=== PATIENT | female | born 2000 | race Caucasian/White ===

== ENCOUNTER 2021-05-30 12:46 | Outpatient (REF) | payer OTHER, SELFPAY | END 2021-05-30 12:47 | disposition home or self-care (01) | LOC: HO.LAB 12:46 | PROVIDERS: Visit Provider Internal Medicine | DX: Z20.822 Contact with and (suspected) exposure to COVID-19 (principal) | CPT/HCPCS: C9803; U0003; U0005 ==

== ENCOUNTER 2021-06-06 14:10 | Outpatient (REF) | payer OTHER, SELFPAY ==
[2021-06-06 14:33] LABS: COVID-19 Test Negative (Negative)
== END 2021-06-06 14:11 | disposition home or self-care (01) ==
LOC: HO.LAB 14:10
PROVIDERS: Visit Provider Internal Medicine
DX: Z20.822 Contact with and (suspected) exposure to COVID-19 (principal)
CPT/HCPCS: 36415; 87635; C9803

== ENCOUNTER 2021-09-18 13:52 | Outpatient (REF) | payer OTHER, SELFPAY ==
[2021-09-18 15:15] LABS: COVID-19 Test Positive (Negative)
== END 2021-09-18 13:53 | disposition home or self-care (01) ==
LOC: HO.LAB 13:52
PROVIDERS: Visit Provider Internal Medicine
DX: Z20.822 Contact with and (suspected) exposure to COVID-19 (principal)
CPT/HCPCS: 36415; 87635; C9803

== ENCOUNTER 2022-11-27 11:20 | Emergency (ER) | payer OTHER, SELFPAY ==
[2022-11-27 11:57] VITALS: BP 109/74; PULSE 105; RESP 18; TEMP 36.8; O2SAT 99; BMI 20.1
--- NOTE | 2022-11-27 11:57 | ED_ITS ---
HPI - Nausea/Vomiting/Diarrhea General Chief complaint: Abdominal Pain <VERA Garcia Last Filed: 11/27/22 12:00> Stated complaint: diarrhea, not eating, nauseous, dizzy <VERA Garcia - Last Filed: 11/27/22 12:00> Time Seen by Provider: 11/27/22 18:43 <VERA Garcia - Last Filed: 11/27/22 12:00> Source: patient <Carlos Hoffman MD - Last Filed: 11/28/22 00:49> Mode of arrival: ambulatory <Carlos Hoffman MD - Last Filed: 11/28/22 00:49> Limitations: no limitations <Carlos Hoffman MD - Last Filed: 11/28/22 00:49> History of Present Illness HPI Narrative: Patient ate [employer]aco 4 days ago since then having diarrhea multiple times unable to sleep even with nausea unable to eat anything feels weak and tired had chills no urinary symptoms no significant abdominal pain no fever blood in the stool is just watery stool <Carlos Hoffman MD - Last Filed: 11/28/22 00:49> Related Data Home medications: Previous Rx's Medication Instructions Recorded levofloxacin 500 mg tablet 500 mg PO DAILY 3 days #3 tabs 11/27/22 loperamide 2 mg tablet (Imodium 2 mg PO Q6H PRN loose stool #20 11/27/22 A-D) tabs ondansetron 4 mg disintegrating 4 mg PO Q6-8H PRN nausea and 11/27/22 tablet vomiting #10 tabs <VERA Garcia Last Filed: 11/27/22 12:00> Allergies/Adverse reactions: Allergies Allergy/AdvReac Type Severity Reaction Status Date / Time No Known Allergies Allergy Unverified 06/06/20 17:58 POLLEN Allergy Unknown Uncoded 03/06/19 00:00 <VERA Garcia Last Filed: 11/27/22 12:00> Review of Systems Review of Systems: Constitutional : No Weight loss, No Fever, No Chills ENT/Mouth : No sore throat, No Rhinorrhea Eyes: No Eye Pain, No Swelling Cardiovascular : No Chest Pain, no palpitations Respiratory : No Cough, No Sputum, no shortness of breath Gastrointestinal : +++ Nausea, No Vomiting, +++Diarrhea, No abdominal Pain, no black stools Genitourinary : No Dysuria, No Urinary Frequency Musculoskeletal : No joint pain, No Myalgias, No Joint Swelling Skin : No Skin Lesions, No rash Neuro : +++ Weakness, No Numbness, No Dizziness, No Headache Psych : No Anxiety/Panic, No Depression Heme/Lymph: No Bruising, No Lymphadenopathy Endocrine : No Polyuria, No Polydipsia All other systems reviewed and are negative <Carlos Hoffman MD - Last Filed: 11/28/22 00:49> Yes all other systems are reviewed and are negative <Carlos Hoffman MD - Last Filed: 11/28/22 00:49> [facility] Social History Social History: Social History Advance Directives: No Advance Directives Information Provided: No <VERA Garcia - Last Filed: 11/27/22 12:00> Physical Exam Vital Signs: Vital Signs: Last Vital Signs Temp 97.6 F 11/27/22 20:43 Pulse 93 11/27/22 20:43 Resp 16 11/27/22 20:43 BP 110/53 L 11/27/22 20:43 Pulse Ox 99 11/27/22 20:43 O2 Del Method 11/27/22 20:43 BMI result Body Mass Index 20.1 <VERA Garcia - Last Filed: 11/27/22 12:00> Vital Signs: Last Vital Signs Temp 97.6 F 11/27/22 20:43 Pulse 93 11/27/22 20:43 Resp 16 11/27/22 20:43 BP 110/53 L 11/27/22 20:43 Pulse Ox 99 11/27/22 20:43 O2 Del Method 11/27/22 20:43 BMI result Body Mass Index 20.1 <Carlos Hoffman MD - Last Filed: 11/28/22 00:49> Appearance: Alert. Oriented X3. No acute distress. Eyes: PERRLA, No Nystagmus ENT: Pharynx normal. Oral Mucosa dry Neck: Normal inspection. Neck supple. CVS: Normal heart rate and rhythm. Pulses normal. Respiratory: No respiratory distress. Equal air entry bilateral, no wheezing/rales/rhonchi Abdomen: Soft and nontender. Bowel sounds are present, no mass palpable, no CVA tenderness Skin: Skin warm and dry. Normal skin color. Normal skin turgor. Extremities: No lower extremity edema. No calf tenderness Neuro: Oriented X 3. No motor deficit. No sensory deficit.No cerebellar signs , cranial nerves II-XII intact <Carlos Hoffman MD - Last Filed: 11/28/22 00:49> Course Course Course Narrative: RME - 22 yo female presenting to the ER with complaints of diarrhea x 3 days. States that this started after eating cow tongue and steak tacos from a food truck in [place]. She states that she has been unable to eat or drink anything as it immediately causes her to have diarrhea. Denies any recent antibiotic use. States that she has feel dizzy and has had palpitations intermittently. She has had burning abdominal pain. Denies any bloody stool. Plan - Labs ordered. <VERA Garcia - Last Filed: 11/27/22 12:00> Medications Administered Discontinued Medications Generic Name Dose Route Start Last Admin Trade Name Freq PRN Reason Stop Dose Admin Sodium Chloride 1,000 mls @ 999 mls/hr 11/27/22 19:06 11/27/22 20:24 Ns IV 11/27/22 20:06 Infused .Q1H1M ONE Infusion Levofloxacin 500 mg 11/27/22 18:44 11/27/22 19:07 Levofloxacin 500 Mg Tablet PO 11/27/22 18:45 500 mg ONCE ONE Administration Loperamide HCl 4 mg 11/27/22 18:44 11/27/22 19:06 Loperamide Hcl 2 Mg Capsule PO 11/27/22 18:45 4 mg ONCE ONE Administration Ondansetron HCl 4 mg 11/27/22 19:06 11/27/22 19:22 Ondansetron Hcl 4 Mg/2 Ml Vial IVPUSH 11/27/22 19:07 4 mg ONCE ONE Administration <VERA Garcia - Last Filed: 11/27/22 12:00> Medications Administered Discontinued Medications Generic Name Dose Route Start Last Admin Trade Name Freq PRN Reason Stop Dose Admin Sodium Chloride 1,000 mls @ 999 mls/hr 11/27/22 19:06 11/27/22 20:24 Ns IV 11/27/22 20:06 Infused .Q1H1M ONE Infusion Levofloxacin 500 mg 11/27/22 18:44 11/27/22 19:07 Levofloxacin 500 Mg Tablet PO 11/27/22 18:45 500 mg ONCE ONE Administration Loperamide HCl 4 mg 11/27/22 18:44 11/27/22 19:06 Loperamide Hcl 2 Mg Capsule PO 11/27/22 18:45 4 mg ONCE ONE Administration Ondansetron HCl 4 mg 11/27/22 19:06 11/27/22 19:22 Ondansetron Hcl 4 Mg/2 Ml Vial IVPUSH 11/27/22 19:07 4 mg ONCE ONE Administration <Carlos Hoffman MD - Last Filed: 11/28/22 00:49> Medical Decision Making Medical Decision Making MDM Narrative: Patient with acute enteritis after eating food likely E coli no blood in the stool patient feeling much better after Imodium labs are stable will give Levaquin as patient has UTI also <Carlos Hoffman MD - Last Filed: 11/28/22 00:49> Lab Data MDM Lab Attestation statement: I reviewed the patient's lab results. <Carlos Hoffman MD - Last Filed: 11/28/22 00:49> Result Diagrams: 11/27/22 12:03 11/27/22 12:03 <VERA Garcia - Last Filed: 11/27/22 12:00> Labs: Lab Results 11/27/22 11/27/22 11/27/22 Range/Units 12:03 12:03 16:35 WBC 6.4 (4.8-10.8) X10*3/uL RBC 5.05 (4.20-5.50) X10*6/uL Hgb 14.9 (12.0-16.0) g/dl Hct 44.7 (37.0-47.0) % MCV 88.5 (80.0-98.0) fL MCH 29.5 (27.0-33.0) pg MCHC 33.3 (31.0-35.0) g/dl RDW 12.8 (11.0-16.0) % Plt Count 187 (160-400) X10*3/uL MPV 10.6 (9.4-12.3) fL Immature Gran % (Auto) 0.3 (0.0-0.4) % Neut % (Auto) 66.1 (45-73) % Lymph % (Auto) 24.7 (20-40) % [place] % (Auto) 8.2 (2-11) % Eos % (Auto) 0.2 (0-4) % Baso % (Auto) 0.5 (0-2) % Lymph # (Auto) 1.6 (1.2-4.9) X10*3/uL [place] # (Auto) 0.5 (0.1-1.2) X10*3/uL Eos # (Auto) 0.0 (0.0-0.4) X10*3/uL Baso # (Auto) 0.0 (0.0-0.2) X10*3/uL Abs Immat Gran (auto) 0.02 (0.00-0.03) X10*3/uL Absolute Neuts (auto) 4.2 (2.0-8.3) x10*3/uL Absolute Nucleated RBC 0.000 (0.0-0.012) X10*3/uL Nucleated RBC % (auto) 0.0 (0.0-0.2) /100WBC Sodium 139 (135-145) mmol/L Potassium 3.5 (3.3-5.1) mmol/L Chloride 108 (96-108) mmol/L Carbon Dioxide 19 L (22-29) mmol/L Anion Gap 16 (12-20) BUN 16 (9-16) mg/dL Creatinine 0.72 (0.5-1.4) mg/dL Estim Creat Clear Calc 107.8 Estimated GFR > 60 Random Glucose 82 (60-115) mg/dL Calcium 8.2 L (8.4-10.2) mg/dL Magnesium 2.2 (1.6-2.6) mg/dL Total Bilirubin 0.6 (0.0-1.0) mg/dL Direct Bilirubin 0.2 (0.0-0.5) mg/dL AST 17 (5-31) U/L ALT 13 (0-31) U/L Alkaline Phosphatase 92 (39-117) U/L Total Protein 7.2 (6.5-8.0) g/dL Albumin 4.4 (3.5-5.0) g/dL Lipase 15 (8-78) U/L Urine Color Dark Yellow Urine Appearance Clear Urine pH 6.0 (5.0-9.0) Ur Specific [place] >= 1.030 H (1.005-1.025) Urine Protein Trace (Neg-Trace) mg/dL Urine Glucose (UA) Negative (Negative) mg/dL Urine Ketones 40 (Negative) mg/dL Urine Blood Negative (Negative) Urine Nitrite Negative (Negative) Ur Leukocyte Esterase Small (1+) H (Negative) Urine RBC 0-2 (0-2) /HPF Urine WBC 11-20 H (0-5) /HPF Ur Squamous Epith Cells 6-10 (0-2) /HPF Urine Bacteria 1+ (None Seen) Hyaline Casts 3-5 (0-2) /LPF Urine Test (NEGATIVE) 11/27/22 Range/Units 16:35 WBC (4.8-10.8) X10*3/uL RBC (4.20-5.50) X10*6/uL Hgb (12.0-16.0) g/dl Hct (37.0-47.0) % MCV (80.0-98.0) fL MCH (27.0-33.0) pg MCHC (31.0-35.0) g/dl RDW (11.0-16.0) % Plt Count (160-400) X10*3/uL MPV (9.4-12.3) fL Immature Gran % (Auto) (0.0-0.4) % Neut % (Auto) (45-73) % Lymph % (Auto) (20-40) % [place] % (Auto) (2-11) % Eos % (Auto) (0-4) % Baso % (Auto) (0-2) % Lymph # (Auto) (1.2-4.9) X10*3/uL [place] # (Auto) (0.1-1.2) X10*3/uL Eos # (Auto) (0.0-0.4) X10*3/uL Baso # (Auto) (0.0-0.2) X10*3/uL Abs Immat Gran (auto) (0.00-0.03) X10*3/uL Absolute Neuts (auto) (2.0-8.3) x10*3/uL Absolute Nucleated RBC (0.0-0.012) X10*3/uL Nucleated RBC % (auto) (0.0-0.2) /100WBC Sodium (135-145) mmol/L Potassium (3.3-5.1) mmol/L Chloride (96-108) mmol/L Carbon Dioxide (22-29) mmol/L Anion Gap (12-20) BUN (9-16) mg/dL Creatinine (0.5-1.4) mg/dL Estim Creat Clear Calc Estimated GFR Random Glucose (60-115) mg/dL Calcium (8.4-10.2) mg/dL Magnesium (1.6-2.6) mg/dL Total Bilirubin (0.0-1.0) mg/dL Direct Bilirubin (0.0-0.5) mg/dL AST (5-31) U/L ALT (0-31) U/L Alkaline Phosphatase (39-117) U/L Total Protein (6.5-8.0) g/dL Albumin (3.5-5.0) g/dL Lipase (8-78) U/L Urine Color Urine Appearance Urine pH (5.0-9.0) Ur Specific [place] (1.005-1.025) Urine Protein (Neg-Trace) mg/dL Urine Glucose (UA) (Negative) mg/dL Urine Ketones (Negative) mg/dL Urine Blood (Negative) Urine Nitrite (Negative) Ur Leukocyte Esterase (Negative) Urine RBC (0-2) /HPF Urine WBC (0-5) /HPF Ur Squamous Epith Cells (0-2) /HPF Urine Bacteria (None Seen) Hyaline Casts (0-2) /LPF Urine Test NEGATIVE (NEGATIVE) <VERA Garcia - Last Filed: 11/27/22 12:00> Lab Results 11/27/22 11/27/22 11/27/22 Range/Units 12:03 12:03 16:35 WBC 6.4 (4.8-10.8) X10*3/uL RBC 5.05 (4.20-5.50) X10*6/uL Hgb 14.9 (12.0-16.0) g/dl Hct 44.7 (37.0-47.0) % MCV 88.5 (80.0-98.0) fL MCH 29.5 (27.0-33.0) pg MCHC 33.3 (31.0-35.0) g/dl RDW 12.8 (11.0-16.0) % Plt Count 187 (160-400) X10*3/uL MPV 10.6 (9.4-12.3) fL Immature Gran % (Auto) 0.3 (0.0-0.4) % Neut % (Auto) 66.1 (45-73) % Lymph % (Auto) 24.7 (20-40) % [place] % (Auto) 8.2 (2-11) % Eos % (Auto) 0.2 (0-4) % Baso % (Auto) 0.5 (0-2) % Lymph # (Auto) 1.6 (1.2-4.9) X10*3/uL [place] # (Auto) 0.5 (0.1-1.2) X10*3/uL Eos # (Auto) 0.0 (0.0-0.4) X10*3/uL Baso # (Auto) 0.0 (0.0-0.2) X10*3/uL Abs Immat Gran (auto) 0.02 (0.00-0.03) X10*3/uL Absolute Neuts (auto) 4.2 (2.0-8.3) x10*3/uL Absolute Nucleated RBC 0.000 (0.0-0.012) X10*3/uL Nucleated RBC % (auto) 0.0 (0.0-0.2) /100WBC Sodium 139 (135-145) mmol/L Potassium 3.5 (3.3-5.1) mmol/L Chloride 108 (96-108) mmol/L Carbon Dioxide 19 L (22-29) mmol/L Anion Gap 16 (12-20) BUN 16 (9-16) mg/dL Creatinine 0.72 (0.5-1.4) mg/dL Estim Creat Clear Calc 107.8 Estimated GFR > 60 Random Glucose 82 (60-115) mg/dL Calcium 8.2 L (8.4-10.2) mg/dL Magnesium 2.2 (1.6-2.6) mg/dL Total Bilirubin 0.6 (0.0-1.0) mg/dL Direct Bilirubin 0.2 (0.0-0.5) mg/dL AST 17 (5-31) U/L ALT 13 (0-31) U/L Alkaline Phosphatase 92 (39-117) U/L Total Protein 7.2 (6.5-8.0) g/dL Albumin 4.4 (3.5-5.0) g/dL Lipase 15 (8-78) U/L Urine Color Dark Yellow Urine Appearance Clear Urine pH 6.0 (5.0-9.0) Ur Specific [place] >= 1.030 H (1.005-1.025) Urine Protein Trace (Neg-Trace) mg/dL Urine Glucose (UA) Negative (Negative) mg/dL Urine Ketones 40 (Negative) mg/dL Urine Blood Negative (Negative) Urine Nitrite Negative (Negative) Ur Leukocyte Esterase Small (1+) H (Negative) Urine RBC 0-2 (0-2) /HPF Urine WBC 11-20 H (0-5) /HPF Ur Squamous Epith Cells 6-10 (0-2) /HPF Urine Bacteria 1+ (None Seen) Hyaline Casts 3-5 (0-2) /LPF Urine Test (NEGATIVE) 11/27/22 Range/Units 16:35 WBC (4.8-10.8) X10*3/uL RBC (4.20-5.50) X10*6/uL Hgb (12.0-16.0) g/dl Hct (37.0-47.0) % MCV (80.0-98.0) fL MCH (27.0-33.0) pg MCHC (31.0-35.0) g/dl RDW (11.0-16.0) % Plt Count (160-400) X10*3/uL MPV (9.4-12.3) fL Immature Gran % (Auto) (0.0-0.4) % Neut % (Auto) (45-73) % Lymph % (Auto) (20-40) % [place] % (Auto) (2-11) % Eos % (Auto) (0-4) % Baso % (Auto) (0-2) % Lymph # (Auto) (1.2-4.9) X10*3/uL [place] # (Auto) (0.1-1.2) X10*3/uL Eos # (Auto) (0.0-0.4) X10*3/uL Baso # (Auto) (0.0-0.2) X10*3/uL Abs Immat Gran (auto) (0.00-0.03) X10*3/uL Absolute Neuts (auto) (2.0-8.3) x10*3/uL Absolute Nucleated RBC (0.0-0.012) X10*3/uL Nucleated RBC % (auto) (0.0-0.2) /100WBC Sodium (135-145) mmol/L Potassium (3.3-5.1) mmol/L Chloride (96-108) mmol/L Carbon Dioxide (22-29) mmol/L Anion Gap (12-20) BUN (9-16) mg/dL Creatinine (0.5-1.4) mg/dL Estim Creat Clear Calc Estimated GFR Random Glucose (60-115) mg/dL Calcium (8.4-10.2) mg/dL Magnesium (1.6-2.6) mg/dL Total Bilirubin (0.0-1.0) mg/dL Direct Bilirubin (0.0-0.5) mg/dL AST (5-31) U/L ALT (0-31) U/L Alkaline Phosphatase (39-117) U/L Total Protein (6.5-8.0) g/dL Albumin (3.5-5.0) g/dL Lipase (8-78) U/L Urine Color Urine Appearance Urine pH (5.0-9.0) Ur Specific [place] (1.005-1.025) Urine Protein (Neg-Trace) mg/dL Urine Glucose (UA) (Negative) mg/dL Urine Ketones (Negative) mg/dL Urine Blood (Negative) Urine Nitrite (Negative) Ur Leukocyte Esterase (Negative) Urine RBC (0-2) /HPF Urine WBC (0-5) /HPF Ur Squamous Epith Cells (0-2) /HPF Urine Bacteria (None Seen) Hyaline Casts (0-2) /LPF Urine Test NEGATIVE (NEGATIVE) <Carlos Hoffman MD - Last Filed: 11/28/22 00:49> Discharge Plan Discharge Clinical Impression: Gastroenteritis, UTI (urinary tract infection) <VERA Garcia - Last Filed: 11/27/22 12:00> Patient Disposition: Home, Self-Care <VERA Garcia - Last Filed: 11/27/22 12:00> Instructions: Urinary Tract Infection in Women (ED), Gastroenteritis (ED) <VERA Garcia - Last Filed: 11/27/22 12:00> Additional Instructions: Drink plenty of fluids Imodium for severe diarrhea Medicine for nausea Antibiotic as advised for urinary tract infection <VERA Garcia - Last Filed: 11/27/22 12:00> Prescriptions: New levofloxacin 500 mg tablet 500 mg PO DAILY 3 Days Qty: 3 0RF ondansetron 4 mg tablet,disintegrating 4 mg PO Q6-8H PRN (Reason: nausea and vomiting) Qty: 10 0RF loperamide [Imodium A-D] 2 mg tablet 2 mg PO Q6H PRN (Reason: loose stool) Qty: 20 0RF <VERA Garcia - Last Filed: 11/27/22 12:00> Interventions: ED Discharge Assessment Last Done: 11/27/22 21:01 <VERA Garcia - Last Filed: 11/27/22 12:00> Discharge Date/Time: 11/27/22 21:03 <VERA Garcia - Last Filed: 11/27/22 12:00>
--- NOTE | 2022-11-27 12:05 | MHC.EDTECH ---
Labs collected and sent
[2022-11-27 12:11] LABS: MANUAL DIFF FLAG NO
[2022-11-27 12:16] LABS: Basophils Percent Auto 0.5 % (0-2); Eosinophils Percent Auto 0.2 % (0-4); Hematocrit 44.7 % (37.0-47.0); Hemoglobin 14.9 g/dl (12.0-16.0); Imm Gran Abs Auto 0.02 X10*3/uL (0.00-0.03); Imm Gran Pct Auto 0.3 % (0.0-0.4); Lymphocytes Absolute Auto 1.6 X10*3/uL (1.2-4.9); Lymphocytes Percent Auto 24.7 % (20-40); Mean Corpuscular HGB Conc 33.3 g/dl (31.0-35.0); Mean Corpuscular Hemoglobin 29.5 pg (27.0-33.0); Mean Corpuscular Volume 88.5 fL (80.0-98.0); Mean Platelet Volume 10.6 fL (9.4-12.3); Monocytes Absolute Auto 0.5 X10*3/uL (0.1-1.2); Monocytes Percent Auto 8.2 % (2-11); Neutrophils Absolute Auto 4.2 x10*3/uL (2.0-8.3); Neutrophils Percent Auto 66.1 % (45-73); Platelet Count 187 X10*3/uL (160-400); Red Blood Count 5.05 X10*6/uL (4.20-5.50); Red Cell Distribution Width 12.8 % (11.0-16.0); White Blood Count 6.4 X10*3/uL (4.8-10.8)
[2022-11-27 12:36] LABS: Alanine Aminotransferase 13 U/L (0-31); Albumin Level 4.4 g/dL (3.5-5.0); Alkaline Phosphatase 92 U/L (39-117); Anion Gap 16 (12-20); Aspartate Amino Transferase 17 U/L (5-31); Bilirubin Direct 0.2 mg/dL (0.0-0.5); Bilirubin Total 0.6 mg/dL (0.0-1.0); Blood Urea Nitrogen 16 mg/dL (9-16); Calcium 8.2 mg/dL (8.4-10.2); Carbon Dioxide 19 mmol/L (22-29); Chloride 108 mmol/L (96-108); Creatinine Clr Calc Pharmacy 107.8; Estimated Glomerular Filt Rate > 60; Glucose Random 82 mg/dL (60-115); Lipase 15 U/L (8-78); Magnesium 2.2 mg/dL (1.6-2.6); Potassium 3.5 mmol/L (3.3-5.1); Sodium 139 mmol/L (135-145); Total Protein 7.2 g/dL (6.5-8.0)
[2022-11-27 16:36] VITALS: BP 125/57; PULSE 68; RESP 18; TEMP 36.8; O2SAT 98
--- NOTE | 2022-11-27 16:36 | MHC.EDTECH ---
PT WAS CALLED BACK TO TRIAGE TO COLLECT URINE SAMPLE AND RE TAKE VITALS SIGN .
[2022-11-27 16:54] LABS: Appearance Urine Clear; Color Urine Dark Yellow; Glucose Urine UA Negative (Negative); Leukocyte Esterase Urine Small (1+) (Negative); Nitrite Urine Negative (Negative); Specific Gravity - Urine >= 1.030 (1.005-1.025); UMIC TRIGGER UACC YES; Urine Blood Negative (Negative); Urine Ketones 40 mg/dL (Negative); Urine Protein Trace mg/dL (Neg-Trace)
[2022-11-27 16:55] LABS: UPreg QC Valid YES; Urine Pregnancy NEGATIVE (NEGATIVE)
[2022-11-27 16:56] LABS: Bacteria Urine 1+ (None Seen); RBC Urine 0-2 /HPF (0-2); UACC Culture Trigger YES
[2022-11-27] MEDS: Loperamide HCl 2 MG CAPSULE 4 MG PO (19:06)
[2022-11-27 19:07] VITALS: BP 101/48; PULSE 82; RESP 17; TEMP 36.9; O2SAT 98
[2022-11-27] MEDS: levoFLOXacin 500 MG TABLET PO (19:07)
[2022-11-27] MEDS: 0.9 % Sodium Chloride 1,000 ML 999 ML IV (19:17)
[2022-11-27] MEDS: ondansetron HCL 4 MG/2 ML VIAL IVPUSH (19:22)
[2022-11-27 20:43] VITALS: BP 110/53; PULSE 93; RESP 16; TEMP 36.4; O2SAT 99
== END 2022-11-27 21:03 | disposition home or self-care (01) ==
PROVIDERS: Physician Assistant; Emergency Provider Internal Medicine
DX: K52.9 Noninfective gastroenteritis and colitis, unspecified (principal); N39.0 Urinary tract infection, site not specified; R11.0 Nausea
CPT/HCPCS: 36415; 80048; 80076; 81001; 81025; 83690; 83735; 85025; 87086; 96361; 96374; 99284; 99285; J2405

== ENCOUNTER 2023-04-12 19:37 | Emergency (ER) | payer OTHER, MEDICAID, SELFPAY ==
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
[2023-04-12 20:10] VITALS: BP 106/60; PULSE 71; RESP 18; TEMP 36.3; O2SAT 99; BMI 19.9
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
[2023-04-13] MEDS: Ketorolac Tromethamine 30 MG/ML VIAL IM (00:46)
--- NOTE | 2023-04-13 00:50 | PC.NURSE ---
Pt a&o, no sob or chest pain, medicated per Nov, Reviewed discharge instructions with pt, pt verbalized understanding, Notified LYN Santoyo
== END 2023-04-13 00:52 | disposition home or self-care (01) ==
PROVIDERS: Emergency Provider Internal Medicine
DX: S83.91XA Sprain of unspecified site of right knee, initial encounter (principal); V47.5XXA Car driver injured in collision with fixed or stationary object in traffic accident, initial encounter; M54.6 Pain in thoracic spine; M54.50 Low back pain, unspecified; Y93.9 Activity, unspecified; Y92.414 Local residential or business street as the place of occurrence of the external cause; Y99.0 Civilian activity done for income or pay
CPT/HCPCS: 73564; 96372; 99283; 99284; J1885

== ENCOUNTER 2024-07-30 15:06 | Emergency (ER) | payer MEDICAID, SELFPAY ==
--- NOTE | ~2024-07-30 | XR_ITS ---
EXAMINATION: XR CHEST 2 VIEWS CLINICAL INFORMATION: cough COMPARISON: No prior chest x-ray available in our system for comparison at the time of this dictation. TECHNIQUE: XR CHEST 2 VIEWS, 2 Views Lungs and Taylor: Both lungs are clear. Pleura: Normal. Costophrenic angles are sharp. No pneumothorax. Heart: The heart is normal in size. Mediastinum: The mediastinum is within normal limits.. Bones: Skeletal structures included are normal for patient's age. XR/XR chest 2V IMPRESSION: Normal chest x-ray. Electronically signed by: Karina Vaughn MD 07/30/2024 04:00 PM [facility]
[2024-07-30 15:09] VITALS: BP 111/74; PULSE 90; RESP 18; TEMP 36.5; O2SAT 100; BMI 21.5
--- NOTE | 2024-07-30 15:13 | ED_ITS ---
HPI - General Adult General Chief complaint: Upper Respiratory Symptoms Stated complaint: URI Time Seen by Provider: 07/30/24 16:08 Source: patient Mode of arrival: ambulatory Limitations: no limitations History of Present Illness ED Provider: Anita Mathis APRN HPI narrative: 23 yo female previously healthy, here with complaints of four days of intermittently productive cough (some yellow sputum in morning), congestion, body aches with chills. No chest pain, shortness of breath, vomiting, diarrhea, headache, neck pain, neck stiffness, leg swelling or leg pain. No recent travel. Patient reports she has had some sick contacts. Related Data Previous Rx's ?Medication ?Instructions ?Recorded levofloxacin 500 mg tablet 500 mg PO DAILY 3 days #3 tabs 11/27/22 loperamide 2 mg tablet (Imodium 2 mg PO Q6H PRN loose stool #20 11/27/22 A-D) tabs ondansetron 4 mg disintegrating 4 mg PO Q6-8H PRN nausea and 11/27/22 tablet vomiting #10 tabs acetaminophen 500 mg tablet 500 mg PO Q6H PRN fever or pain 04/13/23 (Tylenol Extra Strength) #14 tabs ibuprofen 400 mg tablet 400 mg PO Q8H PRN fever or pain 04/13/23 #14 tabs acetaminophen 325 mg capsule 650 mg (2 x 325 mg) PO Q4H PRN 07/30/24 fever or pain #30 caps benzonatate 200 mg capsule 200 mg PO TID PRN cough #12 caps 07/30/24 ibuprofen 600 mg tablet 600 mg PO Q8H PRN pain #30 tabs 07/30/24 Allergies Allergy/AdvReac Type Severity Reaction Status Date / Time No Known Allergies Allergy Verified 07/30/24 15:15 Review of Systems Review of Systems: Yes all other systems are reviewed and are negative Constitutional: Constitutional: Reports no additional constitutional complaints, Reports body ache(s), Denies chills, Denies fever(s), Denies headache(s) and Denies weakness Eyes: Eyes: Reports no additional eye complaints and Denies change in vision ENT: Reports system reviewed and no additional complaints, except as documented, Denies dizziness, Denies headache(s), Reports nasal congestion, Denies nasal discharge and Denies neck pain Cardiovascular: Cardiovascular: Reports no additional cardiovascular complaints, Denies chest pain, Denies leg edema and Denies dyspnea Respiratory: Respiratory: Reports no additional respiratory complaints, Reports cough and Denies dyspnea Gastrointestinal: Gastrointestinal: Reports no additional gastrointestinal complaints, Denies abdominal pain, Denies diarrhea, Denies nausea and Denies vomiting Genitourinary: Genitourinary: Reports no additional female genitourinary complaints and Denies urinary incontinence Musculoskeletal: Musculoskeletal: Reports no additional musculoskeletal complaints, Denies back pain, Denies arthralgias, Denies joint swelling, Denies neck pain, Denies numbness and Denies tingling Integumentary/Breasts: Skin/Breast: Reports system reviewed and no additional complaints, except as docu and Denies rash Neurologic: Reports system reviewed and no additional complaints, except as documented, Denies Abnormal speech present, Denies dizziness, Denies headache(s), Denies numbness, Denies tingling and Denies weakness PMFSH Past Medical History Attestation statement: The following information was validated with the patient. Source: old records reviewed and nursing notes reviewed Social History Social History Advance Directives: No Advance Directives Information Provided: No Physical Exam ED Vital Signs: Vital Signs - 24 hr 07/30/24 15:09 Temperature 97.7 F Pulse Rate 90 Respiratory Rate 18 Blood Pressure 111/74 Pulse Oximetry 100 Oxygen Delivery Method Room Air BMI result Body Mass Index 21.5 Const General: cooperative, healthy appearing, comfortable and no acute distress Orientation/consciousness: patient oriented x3 Limitations: no limitations HENMT Head: Yes normal to inspection Ears: hearing grossly normal bilaterally and TM's normal bilaterally General nose exam: Normal external nose present Face and sinus: Yes normal facial exam Mouth: Normal oral and palatal mucosa present Throat: Yes posterior oropharynx normal, Yes tonsils normal and Yes uvula midline Eyes General: appearance normal, both eyes and all related structures Pupils: Equal, round and reactive pupils present Neck Neck: Yes normal visual inspection, Yes full ROM, Yes no lymphadenopathy and Yes no meningeal signs Chest Chest palpation & inspection: normal inspection of the chest Resp Effort & Inspection: normal respiratory effort Auscultation: clear to auscultation bilaterally Cardio Rate: regular rate Rhythm: regular rhythm Peripheral pulses: Peripheral pulses 2+ throughout GI Inspection: Yes normal to inspection Palpation (GI): Soft to palpation and nontender Auscultation: normal bowel sounds Back/Spine/Pelvis Thoracic/Lumbar Spine: thoracic and lumbar spine normal to inspection Skin General skin exam: no rashes or lesions noted Neuro General: patient oriented x3, no meningeal signs, no focal motor deficits and normal sensation to monofilament Cranial nerves: Yes Equal, round and reactive pupils present Cognition (Neuro): normal cognition Speech: No Abnormal speech present Gait exam (Neuro): Normal gait present Motor exam (neuro): 5/5 motor strength present throughout Extrem General: Yes normal to inspection, Yes no pedal edema and Yes no calf tenderness Course Course Course Narrative: RME performed by Geri Hayes PA-C. Patient is a 23 year old assigned female at presenting to the emergency department with nasal congestion and cough. Detailed physical exam and review of systems are deferred to the clinician oncology. Imaging and swabs ordered. Patient placed back in the waiting room pending room availability and results. Medical Decision Making Medical Decision Making [facility] Narrative: 23 yo female previously healthy, here with complaints of four days of intermittently productive cough (some yellow sputum in morning), congestion, body aches with chills. No chest pain, shortness of breath, vomiting, diarrhea, headache, neck pain, neck stiffness, leg swelling or leg pain. No recent travel. Patient reports she has had some sick contacts. Exam is benign. VSS Will obtain CXR, viral testing Differential Diagnosis Differential Diagnoses: The differential diagnosis associated with the presentation includes viral syndrome, PNA, influenza Admission/Observation Consideration of admission/observation: Escalation of care including admission/observation considered Viral syndrome with no hypoxia or tachypnea requiring supplemental oxygen and or admission Lab Data [facility] Lab Attestation statement: I reviewed the patient's lab results. Labs: Lab Results 07/30/24 Range/Units 15:16 Influenza Type A (PCR) NEGATIVE (Negative) Influenza Type B (PCR) NEGATIVE (Negative) RSV RNA Qual (PCR) NEGATIVE (Negative) SARS-CoV-2 RNA (RT-PCR) NEGATIVE (Negative) Independent Interpretation I performed an independent interpretation of an: Plain X-Ray Interpretation: I independently viewed the x-ray and agree with the radiology report Radiology Impression Discussion of test interpretation with radiology: I have reviewed the radiologist's reading. Radiologist Impression: [address] [address] XRay Report Signed Patient: Brinda Tapia MR#: [id number] : 2000 Acct:[id number] Age/Sex: 23 / F ADM Date: 07/30/24 Loc: HO.ED Attending Dr: Ordering Physician: Geri Hayes Date of Service: 07/30/24 Procedure(s): XR chest 2V Accession Number(s): [id number] cc: Geri Hayes; Physician,Unknown ~ EXAMINATION: XR CHEST 2 VIEWS CLINICAL INFORMATION: cough COMPARISON: No prior chest x-ray available in our system for comparison at the time of this dictation. TECHNIQUE: XR CHEST 2 VIEWS, 2 Views Lungs and Taylor: Both lungs are clear. Pleura: Normal. Costophrenic angles are sharp. No pneumothorax. Heart: The heart is normal in size. Mediastinum: The mediastinum is within normal limits.. Bones: Skeletal structures included are normal for patient's age. XR/XR chest 2V IMPRESSION: Normal chest x-ray. Tests considered The following testing was considered but not selected: PERC 0, no need for CTA Prescription Management I considered prescription management with: Antibiotic Discharge Plan Discharge Clinical Impression: Viral infection Patient Disposition: Home, Self-Care Instructions: Viral Syndrome (ED) Additional Instructions: Your chest x-ray shows no signs of pneumonia. Your testing for flu, COVID, RSV are negative. Take Motrin or Tylenol for any pain or fever Increase fluids at home Follow up with your primary care for any continued symptoms Prescriptions: New benzonatate 200 mg capsule 200 mg PO TID PRN (Reason: cough) Qty: 12 0RF ibuprofen 600 mg tablet 600 mg PO Q8H PRN (Reason: pain) Qty: 30 0RF acetaminophen 325 mg capsule 650 mg PO Q4H PRN (Reason: fever or pain) Qty: 30 0RF No Action levofloxacin 500 mg tablet 500 mg PO DAILY 3 Days Qty: 3 0RF ondansetron 4 mg tablet,disintegrating 4 mg PO Q6-8H PRN (Reason: nausea and vomiting) Qty: 10 0RF loperamide [Imodium A-D] 2 mg tablet 2 mg PO Q6H PRN (Reason: loose stool) Qty: 20 0RF ibuprofen 400 mg tablet 400 mg PO Q8H PRN (Reason: fever or pain) Qty: 14 0RF acetaminophen [Tylenol Extra Strength] 500 mg tablet 500 mg PO Q6H PRN (Reason: fever or pain) Qty: 14 0RF Referrals: Physician,Unknown J [Primary Care Provider] - 1 week Stand Alone Forms: Work/School Release Print Language: Indonesian
[2024-07-30 16:13] LABS: Influenza A PCR NEGATIVE (Negative); Influenza B PCR NEGATIVE (Negative); Resp Syncy Virus RNA Qual PCR NEGATIVE (Negative); SARS COV2 PCR INHOUSE NEGATIVE (Negative)
[2024-07-30 16:53] VITALS: BP 111/74; PULSE 90; RESP 18; TEMP 36.5; O2SAT 100
== END 2024-07-30 16:54 | disposition home or self-care (01) ==
PROVIDERS: Physician Assistant Medical; Emergency Provider Emergency Medicine
DX: B34.9 Viral infection, unspecified (principal); J06.9 Acute upper respiratory infection, unspecified; R05.9 Cough, unspecified; M79.10 Myalgia, unspecified site; Z03.818 Encounter for observation for suspected exposure to other biological agents ruled out
CPT/HCPCS: 0241U; 71046; 99282; 99283

== ENCOUNTER 2025-05-21 13:32 | Emergency (ER) | payer SELFPAY ==
--- NOTE | ~2025-05-21 | XR_ITS ---
CLINICAL HISTORY: can not feel her IUD. 1 view abdomen Comparison: None provided Findings: No consolidation of the partially imaged lung bases. No small bowel dilatation. Moderate to severe stool burden noted, including imaged cecum and including distally. Intrauterine device noted, right of the midline. Likely left facet arthropathy of the imaged lumbosacral junction. Portions of the osseous pelvis obscured. IMPRESSION: 1. No small bowel obstruction. 2. Moderate to severe stool burden. 3. Intrauterine device is right of the midline in the imaged pelvis by radiographs. This document has been electronically signed by: Ronn Perez MD on 05/21/2025 19:02:23
[2025-05-21 13:41] VITALS: BP 119/66; PULSE 86; RESP 18; TEMP 37; O2SAT 98; BMI 21.3
--- NOTE | 2025-05-21 13:45 | ED_ITS ---
HPI - General Adult General Chief complaint: General Medical Stated complaint: abd pain Time Seen by Provider: 05/21/25 16:13 Source: patient Mode of arrival: ambulatory Limitations: no limitations History of Present Illness ED Provider: DR. Leiva HPI narrative: 24-year-old female came in for evaluation of lower pelvic pain x1 week, complain of vaginal discharge for 1 week, patient report a new partner as patient reports he is healthy but patient is still concern of STDs, patient also can not feel her IUD Her doctor cut the threat to short because it bother her partner during the intercourse so patient can not confirm if she still have the IUD, no fever, no chills, no chance of being today, no dysuria, no frequency urination, normal bowel movement and passing flatus normally, no history of intra-abdominal surgery in the past. Related Data Previous Rx's ?Medication ?Instructions ?Recorded levofloxacin 500 mg tablet 500 mg PO DAILY 3 days #3 t abs 11/27/22 loperamide 2 mg tablet (Imodium 2 mg PO Q6H PRN loose stool #20 11/27/22 A-D) tabs ondansetron 4 mg disintegrating 4 mg PO Q6-8H PRN naus ea and 11/27/22 tablet vomiting #10 tabs acetaminophen 500 mg tablet 500 mg PO Q6H PRN fever or pain 04/13/23 (Tylenol Extra Strength) #14 tabs ibuprofen 400 mg tablet 400 mg PO Q8H PRN fever or p ain 04/13/23 #14 tabs acetaminophen 325 mg capsule 650 mg (2 x 325 mg) PO Q4 H PRN 07/30/24 fever or pain #30 caps benzonatate 200 mg capsule 200 mg PO TID PRN cough #12 caps 07/30/24 ibuprofen 600 mg tablet 600 mg PO Q8H PRN pain #30 t abs 07/30/24 Allergies Allergy/AdvReac Type Severity Reaction Status Date / Time No Known Allergies Allergy Verified 05/21/25 13:41 Review of Systems 2 Review of Systems: All other systems are reviewed and are negative Constitutional: Reports as per HPI and Reports no additional constitutional complaints Eyes: Reports as per HPI and Reports no additional eye complaints Reports system reviewed and no additional complaints, except as documented Cardiovascular: Reports as per HPI and Reports no additional cardiovascular complaints Respiratory: Reports as per HPI and Reports no additional respiratory complaints Gastrointestinal: Reports as per HPI and Reports no additional gastrointestinal complaints Genitourinary: Reports no additional female genitourinary complaints Musculoskeletal: Reports no additional musculoskeletal complaints Skin/Breast: Reports system reviewed and no additional complaints, except as docu Psychiatric: Reports no additional psychiatric complaints Endocrine: Reports no additional endocrine complaints Hematologic/Lymphatic: Reports no additional hematologic/lymphatic complaints Allergic/Immunologic: Reports no additional allergic/immunologic complaints Reports system reviewed and no additional complaints, except as documented and Reports Abnormal speech present [facility] Social History Social History Unable to assess alcohol history related to: Unknown Smoked in Last 30 Days: No Use of substances other than those prescribed or required for medical reasons: Unknown Advance Directives: No Advance Directives Information Provided: No Physical Exam ED Vital Signs: Vital Signs - 24 hr 05/21/25 13:41 05/21/25 18:22 Temperature 98.6 F 98.2 F Pulse Rate 86 82 Respiratory Rate 18 16 Blood Pressure 119/66 106/55 L Pulse Oximetry 98 95 Oxygen Delivery Method Room Air Room Air BMI result Body Mass Index 21.3 Vital signs have been reviewed and appear to be correct. Blood pressure elevated. Heart rate normal. Respiratory rate normal. Temperature normal. Oxygen saturation normal. Appearance: Alert. Oriented X3. No acute distress. Head: Normal external exam. Normocephalic. Atraumatic. No Perez signs noted. No raccoon eyes noted Eyes: PERRLA. EOMI. Conjunctiva and sclera normal. Eyelids normal. ENT: TM's Normal. Pharynx normal. Uvula midline. Moist mucous membranes. No trismus noted. No drooling noted. No muffled voice noted. Neck: Normal inspection. Neck supple. FROM. No adenopathy. Thyroid Normal. No meningeal signs. No neck mass noted. CVS: Normal heart rate and rhythm. Heart sound normal. No murmurs noted. Pulses normal throughout. Respiratory: No respiratory distress. Painless inspiration. Breath sounds normal. No wheezes/rales/rhonchi noted. Chest nontender. No accessory muscle usage noted or decreased air movement noted. Abdomen: Soft and nontender. Bowel sounds normal in all 4 quadrants. No distention noted. No organomegaly noted. No visible injury noted. Pelvic exam: In the presence of female telephone operator in the room normal inspection, Small amount of clear discharge, no bleed, no palpable mass, unable to feel the IUD threads. Back: No CVA tenderness. Full range of motion noted. . Skin: Skin warm and dry. Normal skin color. Normal skin turgor. No rashes/lesions/lacerations noted. Extremities: No lower extremity edema. Extremities exhibit normal range of motion. Extremities nontender. Neuro: Oriented X 3. Cranial nerve exam: II-XII are grossly intact No motor deficit. No sensory deficit. Reflexes normal. Course Course Course Narrative: RME: 24 year female presents to ED for lower abdominal pain, and vaginal discharge. Discharged green yellow. Patient admits to new sexual partner. Labs UA CTA mg ordered Reevaluation(s) Reevaluation #1: negative for STDs, patient is at low risk for STD with monotonous relationship, negative GC/ chlamydia, negative wet prep for BV/ Bernice. negative UTI. IUD presence is confirmed by x-ray. No discrete infection. Time: 18:42 Medical Decision Making Differential Diagnosis Differential Diagnoses: The differential diagnosis associated with the presentation includes ( STD, BV, candidiasis, UTI, , Missed IUD.) Admission/Observation Consideration of admission/observation: Escalation of care including admission/observation considered Lab Data [facility]DM Lab Attestation statement: I reviewed the patient's lab results. 05/21/25 13:57 05/21/25 13:57 Labs: Lab Results 05/21/25 05/21/25 Range/Units 13:57 17:44 WBC 6.4 (4.8-10.8) X10*3/uL RBC 4.57 (4.20-5.50) X10*6/uL Hgb 13.8 (12.0-16.0) g/dl Hct 40.0 (37.0-47.0) % MCV 87.5 (80.0-98.0) fL MCH 30.2 (27.0-33.0) pg MCHC 34.5 (31.0-35.0) g/dl RDW 12.2 (11.0-16.0) % Plt Count 172 (160-400) X10*3/uL MPV 10.3 (9.4-12.3) fL Immature Gran % (Auto) 0.2 (0.0-0.4) % Neut % (Auto) 57.2 (45-73) % Lymph % (Auto) 32.3 (20-40) % [place] % (Auto) 9.0 (2-11) % Eos % (Auto) 0.8 (0-4) % Baso % (Auto) 0.5 (0-2) % Lymph # (Auto) 2.1 (1.2-4.9) X10*3/uL [place] # (Auto) 0.6 (0.1-1.2) X10*3/uL Eos # (Auto) 0.1 (0.0-0.4) X10*3/uL Baso # (Auto) 0.0 (0.0-0.2) X10*3/uL Abs Immat Gran (auto) 0.01 (0.00-0.03) X10*3/uL Absolute Neuts (auto) 3.7 (2.0-8.3) x10*3/uL Absolute Nucleated RBC 0.000 (0.0-0.012) X10*3/uL Nucleated RBC % (auto) 0.0 (0.0-0.2) /100WBC Sodium 140 (135-145) mmol/L Potassium 3.7 (3.3-5.1) mmol/L Chloride 105 (96-108) mmol/L Carbon Dioxide 26 (22-29) mmol/L Anion Gap 13 (12-20) BUN 16 (9-16) mg/dL Creatinine 0.79 (0.5-1.4) mg/dL Estim Creat Clear Calc 101.0 Estimated GFR > 60 Random Glucose 99 (60-115) mg/dL Calcium 8.2 L (8.4-10.2) mg/dL Total Bilirubin 0.4 (0.0-1.0) mg/dL AST 17 (5-31) U/L ALT 14 (0-31) U/L Alkaline Phosphatase 60 (39-117) U/L Total Protein 6.8 (6.5-8.0) g/dL Albumin 4.4 (3.5-5.0) g/dL Beta HCG, Quant < 2 mIU/mL Urine Color Yellow Urine Appearance Clear Urine pH 7.0 (5.0-9.0) Ur Specific [place] 1.015 (1.005-1.025) Urine Protein Negative (Neg-Trace) mg/dL Urine Glucose (UA) Negative (Negative) mg/dL Urine Ketones Negative (Negative) mg/dL Urine Blood Negative (Negative) Urine Nitrite Negative (Negative) Ur Leukocyte Esterase Small (1+) H (Negative) Urine RBC 0-2 (0-2) /HPF Urine WBC 0-5 (0-5) /HPF Ur Squamous Epith Cells 3-5 (0-2) /HPF Urine Bacteria Trace (None Seen) Hyaline Casts 0-2 (0-2) /LPF Urine Test NEGATIVE (NEGATIVE) Ur N gonorrhoeae DNA (PCR) NOT DETECTED (Not Detect.) Ur Chlamydia DNA (PCR) NOT DETECTED (Not Detect.) T. vaginalis (PCR) NOT DETECTED (Not Detect) Bact vaginosis (PCR) POSITIVE A (Negative) C. krusei/glabrata (PCR) NOT DETECTED (Not Detect) Bernice group (PCR) NOT DETECTED (Not Detect) Independent Interpretation I performed an independent interpretation of an: Plain X-Ray ( KUB : IUD in place.) Radiology Impression Discussion of test interpretation with radiology: I have reviewed the radiologist's reading. Discharge Plan Discharge Clinical Impression: Vaginal discharge, Pelvic pain Patient Disposition: Home, Self-Care Instructions: Pelvic Pain (ED) Additional Instructions: drink plenty of fluids, use vaginal douche to clean. Follow-up with your OBGYN doctor. If symptoms persist return for re-evaluation. Prescriptions: No Action levofloxacin 500 mg tablet 500 mg PO DAILY 3 Days Qty: 3 0RF ondansetron 4 mg tablet,disintegrating 4 mg PO Q6-8H PRN (Reason: nausea and vomiting) Qty: 10 0RF loperamide [Imodium A-D] 2 mg tablet 2 mg PO Q6H PRN (Reason: loose stool) Qty: 20 0RF ibuprofen 400 mg tablet 400 mg PO Q8H PRN (Reason: fever or pain) Qty: 14 0RF acetaminophen [Tylenol Extra Strength] 500 mg tablet 500 mg PO Q6H PRN (Reason: fever or pain) Qty: 14 0RF benzonatate 200 mg capsule 200 mg PO TID PRN (Reason: cough) Qty: 12 0RF ibuprofen 600 mg tablet 600 mg PO Q8H PRN (Reason: pain) Qty: 30 0RF acetaminophen 325 mg capsule 650 mg PO Q4H PRN (Reason: fever or pain) Qty: 30 0RF Referrals: [place] [Primary Care Provider, Primary Care] Interventions: ED Discharge Assessment Last Done: 05/21/25 18:54 Discharge Date/Time: 05/21/25 18:54 Print Language: Malay
[2025-05-21 14:06] LABS: MANUAL DIFF FLAG NO
[2025-05-21 14:07] LABS: Hematocrit 40.0 % (37.0-47.0); Hemoglobin 13.8 g/dl (12.0-16.0); Imm Gran Abs Auto 0.01 X10*3/uL (0.00-0.03); Imm Gran Pct Auto 0.2 % (0.0-0.4); Lymphocytes Absolute Auto 2.1 X10*3/uL (1.2-4.9); Mean Corpuscular HGB Conc 34.5 g/dl (31.0-35.0); Mean Corpuscular Hemoglobin 30.2 pg (27.0-33.0); Mean Corpuscular Volume 87.5 fL (80.0-98.0); NRBC Abs Auto 0.000 X10*3/uL (0.0-0.012); NRBC Pct Auto 0.0 /100WBC (0.0-0.2); Platelet Count 172 X10*3/uL (160-400); Red Blood Count 4.57 X10*6/uL (4.20-5.50); White Blood Count 6.4 X10*3/uL (4.8-10.8)
--- OUTSIDE RECORDS SUMMARY | 2025-05-21 14:08 | XMS_ITS | Clinical Summary ---
Author Organization [facility] Address [address] [place] [address] Care Team Providers Care Mat Maker Name Role Phone Unavailable Primary Care Provider Unavailabl e Surgical History Surgery Date Site/Laterality Comments OTHER SURGICAL HISTORY PROCEDURE: PVCA VISCERAL VASCULAR STUDY, COMPLETE OVARIAN CYST REMOVAL Right PROCEDURE: MD OVARIAN CYSTECTOMY UNI/BI; COMMENT: ovarian torsion at 10 yo Medical History Medical History Date Comments Anemia DX:Anemia Fibroid uterus 10/2020 DX:Fibroid uteru s; COMMENT: 2.8 cm Anogenital herpesviral infection DX:Anogenital herpesviral infection Migraine headache DX:Migraine he adache Palpitations 01/06/2021 DX:Palpitations; COMMENT: Pt states approx 4 yrs ago she went to [facility] - PCP for cardiac palpitations. She states she was worked up and also wore a monitor for 2 weeks but never followed up because she felt they were rude. Pt to sign john at upcoming visit Type O blood, Rh positive 01/2021 DX:Typ e O blood, Rh positive HSV-2 infection DX:HSV-2 infecti on Family History Medical History Relation Name Comments Diabetes Maternal Grandfather Other: pulmonary ebolism Mother Diabetes Paternal Grandmother Relation Name Status Comments Brother x2 Alive Father Alive Maternal Grandfather Alive Maternal Grandmother Alive Mother Alive Paternal Grandmother Alive Sister x4 Alive Social History Tobacco Use Types Packs/Day Years Used Date Smoking Tobacco: Never Smokeless Tobacco: Never Alcohol Use Standard Drinks/Week Comments Not Currently 0 (1 standard drink = 0.6 oz pur e alcohol) Comments Unknown Sex and Gender Information Value Date Recorded Sex Assigned at Not on file Legal Sex Female 1:01 PM EST Gender Identity Not on file Sexual Orientation Not on file Obstetrics History Plan of Treatment Health Maintenance Due Date Last Done Comments HPV Vaccines (1 - 3-dose series) 2013 Hepatitis B Vaccines (1 of 3 - 19+ 3-dose series) 2017 COVID-19 Vaccine (2023-2 5 season) 2024 Cervical Cancer Screening: P ap Smear 09/05/2024 09/05/2021, 01/21/2021 Depression Screening 09/20/2024 Influenza Vaccine (#1) 2025 DTaP,Tdap,and Td Vaccines (2 - Td or Tdap) 05/13/2031 05/13/2021 HIB Vaccines Aged Out No longer eligi ble based on patient's age to complete this topic Hepatitis A Vaccines Aged Out No long er eligible based on patient's age to complete this topic IPV Vaccines Aged Out No longer eligi ble based on patient's age to complete this topic MMR Vaccines Aged Out No longer eligi ble based on patient's age to complete this topic Meningococcal ACWY Vaccine Aged Out N o longer eligible based on patient's age to complete this topic Meningococcal B Vaccine Aged Out No l onger eligible based on patient's age to complete this topic Pneumococcal Vaccine: Pediatrics (0 to 5 Years) and At-Risk Patients (6 to 49 Years) Aged Out No longer eligible b ased on patient's age to complete this topic RSV Immunization Patients Under 20 months Aged Out No longer eligible b ased on patient's age to complete this topic Varicella Vaccines Aged Out No longer eligible based on patient's age to complete this topic Procedures Procedure Name Priority Date/Time Associated Diagnosis Comments PAP SMEAR Routine 09/05/2021 from Last 3 Months or Most Recently Relevant to Health Maintenance Results * Pap smear (09/05/2021) 09/05/2021 Narrative HISTORICAL TESTING LAB RESULTING AGENCY - 10/01/2021 11:46 AM EST [id number] THINPREP PAP, IMAGED: NEGATIVE FOR SQUAMOUS INTRAEPITHELIAL LESION AND MALIGNANCY . REACTIVE CELLULAR CHANGES. ABUNDANT RED BLOOD CELLS ARE PRESENT. NOTE: THE PAP TEST IS A SCREENING TEST WITH AN INHERENT FALSE NEGATIVE RATE. AUTOMATED PRESCREENING OF ALL LIQUID BASED SPECIMENS IS PERFORMED BY THE THINPREP IMAGING SYSTEM UNLESS OTHERWISE STATED. ABELINO THURMAN(ASCP) (CASE SCREENED 09 29 2021) CAYLA SAUNDERS M.D. , PATHOLOGIST (CASE ELECTRONICALLY SIGNED 09 30 2021) ADEQUACY: SATISFACTORY ENDOCERVICAL/TRANSFORMATION ZONE COMPONENT PRESENT. SOURCE: THINPREP PAP HPV IF ASCUS, CERVICAL, IMAGED CLINICAL INFORMATION: HPV IF DIAGNOSIS OF ASCUS. HORMONES, PAP HX NEG. Z12.4 Dea Choi CNM LAB CYTOLOGY ORDERABLES Final Result HISTORICAL TESTING LAB RESULTING AGENCY from Last 3 Months or Most Recently Relevant to Health Maintenance
--- OUTSIDE RECORDS SUMMARY | 2025-05-21 14:08 | XMS_ITS | Clinical Summary ---
Author Organization [facility] Address [address] [place] [address] Care Team Providers Care Lens Grinder And Polisher Name Role Phone Maynor Ayala MD Primary Care Provider [phone] Source Comments PLEASE NOTE, if this patient is a minor, it may be UNLAWFUL to discuss sensitive information that is contained in these records (such as FAMILY PLANNING, MENTAL HEALTH or SUBSTANCE ABUSE) with the minor patient's parent or other person without the patient's specific authorization.[facility] Allergies No known active allergies Medications ibuprofen 600 mg tabletIndication s:Back spasm Take 1 Tablet by mouth 4 (four) times daily as needed for pain 60 Tablet 01/15/2023 Active cyclobenzaprine (FLEXERIL) 5 mg tabletIndication s:Back spasm Take 1 Tablet by mouth 3 (three) times daily as needed for muscle spasms 30 Tablet 1 01/15/2023 Active Active Problems Problem Noted Date Diagnosed Date History of anemia 06/16/2024 Overview (06/16/2024): Last Iron studies 03/06/2024 normal Immunizations Immunization Administration Dates Next Due HPV 9 (Gardasil) 03/16/2024,01/10/2024 Hep B,adult,adjuvanted (HEPLISAV) 03/16/2024, Pfizer COVID vaccine, yoseph [place] cap, 12+ 1 10/22/2021,07/24/2022 TDAP 05/13/2021 Varicella (Varivax), Live Vaccine 03/16/2024 Social History Tobacco Use Types Packs/Day Years Used Date Smoking Tobacco: Never Passive Smoke Exposure: Never Smokeless Tobacco: Never Tobacco Cessation:Counseling Given: Not Answered Alcohol Use Standard Drinks/Week Comments Never 0 (1 standard drink = 0.6 oz pur e alcohol) Social Connections Answer Date Recorded Connectedness 0 05/29/2024 Financial Resource Strain Answer Date R ecorded Financial Resource Strain 0 2022 Stress Answer Date Recorded Stress 0 09/24/2022 Physical Activity Answer Date Recorded Physical Activity 0 09/24/2022 Food Insecurity Answer Date Recorded Food 0 06/15/2024 Transportation Needs Answer Date Record ed Transportation 0 09/24/2022 Housing Stability Answer Date Recorded Housing 0 09/24/2022 Safety and Environment Answer Date Drew rded Safety 1 01/10/2024 Utilities Answer Date Recorded Utilities 0 09/24/2022 Employment Answer Date Recorded Employment 0 09/24/2022 Comments No Sex and Gender Information Value Date Recorded Sex Assigned at Female 09/24/2022 10:56 AM PST Legal Sex Female 10:48 AM PDT Gender Identity Female 09/24/2022 10:56 AM PST Sexual Orientation Straight 09/24/2022 10 :56 AM PST Last Filed Vital Signs Vital Sign Reading Time Taken Comments Blood Pressure 110/70 03/20/2024 1:54 PM EDT Pulse 97 03/20/2024 2:27 PM EDT Temperature 36.8 C (98.2 F) 03/20/2024 1:54 PM EDT Respiratory Rate 16 03/20/2024 1:54 PM EDT Oxygen Saturation 98% 03/20/2024 1:54 PM EDT Inhaled Oxygen Concentration - - Weight 61.7 kg (136 lb) 03/20/2024 1:54 PM EDT Height 167.6 cm (5' 6 ) 03/20/2024 1:54 PM EDT Body Mass Index 21.95 03/20/2024 1:54 PM EDT Plan of Treatment Health Maintenance Due Date Last Done Comments HPV Screening 1998 Pap + HPV 1998 Tobacco Screening 1998 [id number] ( season) 2024 022, 07/24/2022 Imm-HPV (3 - 3-dose series) 07/11/2024 03/16/2024, 0 01/10/2024 Alcohol and Drug Screen 09/20/2024 03/20/20 24, 01/10/2024, 09/24/2022 Depression Annual Screen 09/20/2024 03/20/2024, 12/20 Anxiety Screening 01/09/2025 01/10/2024 Relationship Safety Screening/Counseling 01/09/2025 01/10/2024, 09/24/2022 Annual Wellness (Adult): Ind icated (All Coverage) 03/16/2025 03/16/2024, 04/23/2023 Imm-Influenza (#1) 2025 Cervical Cancer Screening 04/23/2026 Pap Smear 04/23/2026 04/23/2023 Hypertension Screening (#1) 03/20/2027 Imm-DTaP/Tdap/Td (2 - Td or Tdap) 05/13/2031 021 HIV Screening Completed 01/10/2024 Hepatitis C Screening Completed 01/10/2024 Imm-Hepatitis B Completed 03/16/2024, 01/10/2024 Cervical Ablation/Cold-Knife Conization Discontinued Cervical Cryotherapy Discontinued Colposcopy Discontinued Endometrial Biopsy Discontinued Excision/Leep Discontinued HPV Genotyping Discontinued Vaginal Pap Discontinued Vulvoscopy Discontinued Procedures Procedure Name Priority Date/Time Associated Diagnosis Comments HIV 1/2 AG & AB W/RFLX (4TH GEN) Routine 01/10/2024 9:52 AM EDT Screen for STD (sexually transmitted disease) HEPATITIS C AB W/RFLX HCV RNA, QT, RT PCR Routine 01/10/2024 9:52 AM EDT Screen for STD (sexually transmitted disease) [facility] PAP REFLEX HPV RNA E6/E7 (Q) Routine 04/23/2023 3:55 PM EDT Well woman exam Routine cervical smear from Last 3 Months or Most Recently Relevant to Health Maintenance Results * HEPATITIS C AB W/RFLX HCV RNA, QT, RT PCR (01/10/2024 9:52 AM EDT) HEPATITIS C ANTIBODY NON-REACT HANY NON-REACT HANY [facility] Comment: HCV antibody was non-reactive. There is no laboratory evidence of HCV infection. In most cases, no further action is required. However, if recent HCV exposure is suspected, a test for HCV RNA (test code 38597) is suggested. For additional information please refer to http://[employer]/faq/KON26t3 (This link is being provided for informational/ educational purposes only.) Blood Blood / Unknown 01/10/2024 9 :52 AM EDT 01/10/2024 9:53 AM EDT Narrative [facility] - 01/11/2024 3:48 PM EDT FASTING:YES us Maynor Ayala MD LAB - BLOOD DRAW Edited Result - Final [facility] [address] [address], [facility] [address] [address] * HIV 1/2 AG & AB W/RFLX (4TH GEN) (01/10/2024 9:52 AM EDT) HIV AG/AB, 4TH GEN NON-REAC TIVE NON-REAC TIVE [facility] Comment: HIV-1 antigen and HIV-1/HIV-2 antibodies were not detected. There is no laboratory evidence of HIV infection. PLEASE NOTE: This information has been disclosed to you from records whose confidentiality may be protected by state law. If your state requires such protection, then the state law prohibits you from making any further disclosure of the information without the specific written consent of the person to whom it pertains, or as otherwise permitted by law. A general authorization for the release of medical or other information is NOT sufficient for this purpose. For additional information please refer to http://[employer]/faq/QYI291 (This link is being provided for informational/ educational purposes only.) The performance of this assay has not been clinically validated in patients less than 2 years old. Blood Blood / Unknown 01/10/2024 9 :52 AM EDT 01/10/2024 9:53 AM EDT Narrative [facility] - 01/11/2024 3:48 PM EDT FASTING:YES us Maynor C Ayala MD LAB - BLOOD DRAW Final Result Performing Organization Address [facility]/ZIP Co de Phone Number [facility] [address] [place] [id number], [employer] [address] [address] * [facility] PAP REFLEX HPV RNA E6/E7 (Q) (04/23/2023 3:55 PM EDT) CLINICAL INFORMATION See Note [facility] Comment:ROUTINE EXAM LMP See Note [facility] Comment:[id number] PREV. PAP See Note [facility] Comment:NONE GIVEN PREV. BX See Note [facility] Comment:NONE GIVEN SOURCE See Note [facility] Comment:Cervix STATEMENT OF ADEQUACY See Note [facility] Comment: Satisfactory for evaluation. Endocervical/transformation zone component present. INTERPRETATION/RESU LT See Note [facility] Comment: Cytology Results: Negative for intraepithelial lesion or malignancy. INFECTION See Note [facility] Comment: Fungal organisms morphologically consistent with Bernice spp. COMMENT See Note [facility] Comment: This Pap test has been evaluated with computer assisted technology. [employer] See Note PENDING SALE TO [facility] [employer] Comment: EXJ, CT(ASCP) CT Screening Location: [place] [address] COMMENT [facility] Swab Cervix uteri structure / Unknown 04/23/2023 3:55 PM EDT 04/26/2023 4:00 AM EDT Narrative [facility] - 04/27/2023 12:56 PM EDT EXPLANATORY NOTE: The Pap is a screening test for cervical cancer. It is not a diagnostic test and is subject to false negative and false positive results. It is most reliable when a satisfactory sample, regularly obtained, is submitted with relevant clinical findings and history, and when the Pap result is evaluated along with historic and current clinical information. Fide Rajput NP LAB - PATHOLOGY AND CYTOLOGY AMBULATORY Final Result Performing Organization Address [facility]/ZIP Co de Phone Number [employer] [address] [address], [employer] [address] [id number] from Last 3 Months or Most Recently Relevant to Health Maintenance Insurance [address] [employer] Care Teams Lens Grinder And Polisher Relationship Specialty Start Date End Date Maynor Ayala MD [address] [place] [address] PCP - General Internal Medicine 09/23/22
[2025-05-21 14:09] LABS: Appearance Urine Clear; Glucose Urine UA Negative (Negative); PH 7.0 (5.0-9.0); Specific Gravity - Urine 1.015 (1.005-1.025); UMIC TRIGGER UACC YES
[2025-05-21 14:13] LABS: UPreg QC Valid YES
[2025-05-21 14:16] LABS: UACC Culture Trigger YES
[2025-05-21 14:26] LABS: Alanine Aminotransferase 14 U/L (0-31); Albumin Level 4.4 g/dL (3.5-5.0); Alkaline Phosphatase 60 U/L (39-117); Anion Gap 13 (12-20); Aspartate Amino Transferase 17 U/L (5-31); Blood Urea Nitrogen 16 mg/dL (9-16); Calcium 8.2 mg/dL (8.4-10.2); Carbon Dioxide 26 mmol/L (22-29); Chloride 105 mmol/L (96-108); Creatinine Clr Calc Pharmacy 101.0; Estimated Glomerular Filt Rate > 60; Potassium 3.7 mmol/L (3.3-5.1); Sodium 140 mmol/L (135-145); Total Protein 6.8 g/dL (6.5-8.0)
[2025-05-21 15:39] LABS: CT PCR Urine NOT DETECTED (Not Detect.); NG PCR Urine NOT DETECTED (Not Detect.)
[2025-05-21 18:22] VITALS: BP 106/55; PULSE 82; RESP 16; TEMP 36.8; O2SAT 95
[2025-05-21 18:54] VITALS: BP 106/55; PULSE 82; RESP 16; TEMP 36.8; O2SAT 95
[2025-05-22 01:30] LABS: Bacterial Vaginosis PCR POSITIVE (Negative); Candida Group PCR NOT DETECTED (Not Detect); Candida glab krusei PCR NOT DETECTED (Not Detect); Trichomonas vaginalis PCR NOT DETECTED (Not Detect)
== END 2025-05-21 18:54 | disposition home or self-care (01) ==
PROVIDERS: Physician Assistant; Emergency Provider Emergency Medicine; PCP Dentist General Practice
DX: N76.0 Acute vaginitis (principal); R10.2 Pelvic and perineal pain
CPT/HCPCS: 36415; 74018; 80053; 81001; 81025; 81515; 84702; 85025; 87086; 87491; 87591; 99283; 99284

== ENCOUNTER → 2025-05-21 17:33 | Outpatient (BNV) | payer SELFPAY | PROVIDERS: Emergency Provider Emergency Medicine; PCP Dentist General Practice; Visit Provider Radiology Neuroradiology | DX: K59.00 Constipation, unspecified (principal) | CPT/HCPCS: 74018 ==